=== PATIENT | female | born 1940 | race Caucasian/White ===

== ENCOUNTER 2025-02-13 07:27 | Day surgery (SDC) | payer MEDICARE, OTHER ==
[~2025-02-13] VITALS: Ht 160 cm; Wt 58.6 kg
[2025-02-13] VITALS (10 sets, daily range): BP systolic 118–167; BP diastolic 59–129; PULSE 55–68; RESP 11–18; O2SAT 91–100
[~2025-02-13 07:27] MED LIST: ALEN35TA53 PO; AMLO10TA13 PO; CALC-159 PO; CITA40TA22 PO; DOCU-28 PO; MAVA5CAP; OMEG10007 PO; ONE A DAY PO; PANT-47 PO; SIMV-45 PO
[2025-02-13] MEDS ORDERED: LIDOcaine 2% Viscous 15ml cup ONE (08:19)
[2025-02-13] MEDS ORDERED: MIDAZolam 1 MG/ML 5ML VIAL ONE (08:19)
[2025-02-13] MEDS ORDERED: fentaNYL/PF 50MCG/1 ML 2ML syringe ONE (08:19)
[2025-02-13] MEDS ORDERED: simethicone 40mg/0.6ml oral drops 30ml ONE (09:23)
--- NOTE | 2025-02-14 16:04 | PATHOLOGY REPORT ---
[facility] [address] [place] [address] SURGICAL PATHOLOGY REPORT CaseNumber: [id number] Surgeon:Sebas Sullivan M.D. CLINICAL INFORMATION CLINICAL INFORMATION: Iron deficiency anemia secondary to chronic blood loss, heartburn. DIAGNOSIS DIAGNOSIS: ESOPHAGUS; BIOPSY - SQUAMOUS BEARING ESOPHAGEAL MUCOSA WITH LARGE ULCER WITH REACTIVE/REGENERATIVE EPITHELIAL BAUTISTA GES AND FOCAL BACKGROUND SQUAMOUS EPITHELIUM SUGGESTIVE OF GASTROESOPHAGEAL REFLUX DISEASE. - NEGATIVE FOR VIRAL EFFECT, INTESTINAL METAPLASIA, DYSPLASIA, AND MALIGNANCY. - RARE BACKGROUND VERÓNICA ESOPHAGITIS (POSITIVE HISTOCHEMICAL STAIN). MICROSCOPIC DESCRIPTION MICROSCOPIC DESCRIPTION: Microscopic examination is performed on one H&E stained slide. Present is sq uamous-bearing esophageal mucosa with a large ulcer. There are focal reactive regenerative epithelial changes present. Within the background squamous epithelium are focal eosinophils; however, other inf lammatory cells including neutrophils and lymphocytes are also present. There is no evidence of polar izable debris, viral effect, dysplasia, or malignancy. 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 (bb) GROSS DESCRIPTION GROSS DESCRIPTION: Received in a container of formalin labeled with the patient's name, number, and " esophagus BX" are 5 pieces of kent tissue 0.2-0.6 x 0.1 x 0.1 cm. The specimen is entirely submitted a s A1. The time at which the specimen was removed was 08. The time at which the specimen was placed in formalin was 0834. Electronically signed by: Earnest Brenner D.O. 02/14/2025 3:39:00 PM
== END 2025-02-13 09:16 | disposition home or self-care (01) ==
LOC: GI LAB 07:27
PROVIDERS: ATTEND Internal Medicine Gastroenterology
DX: D50.0 Iron deficiency anemia secondary to blood loss (chronic) (principal); K21.00 Gastro-esophageal reflux disease with esophagitis, without bleeding; K44.9 Diaphragmatic hernia without obstruction or gangrene
CPT/HCPCS: 43239; 88305; 88312; A4620; G0500; J2250; J3010; J7030; Z7512; 99152